=== PATIENT | male | born 1980 | race Caucasian/White ===

== ENCOUNTER 2016-05-25 07:24 | Emergency (ER) | payer MEDICAID ==
[~2016-05-25] VITALS: Ht 170.2 cm; Wt 62.0 kg
[2016-05-25 08:05] VITALS: BP 110/76
== END 2016-05-25 09:53 | disposition home or self-care (01) ==
LOC: ER 07:25
DX: Z48.02 Encounter for removal of sutures (principal)
CPT/HCPCS: 99281; Z7610

== ENCOUNTER 2017-08-20 20:39 | Emergency (ER) | payer SELFPAY ==
[~2017-08-20] VITALS: Ht 170.2 cm; Wt 62.0 kg
[2017-08-20 20:56] VITALS: BP 131/95
[2017-08-20] MEDS ORDERED: IBUPROFEN 600MG TABLET PO STA (21:09)
[2017-08-20 21:39] LABS: BASOPHILS % 0.6 % (0.0-2.0); EOSINOPHILS % 0.2 % (0.0-5.0); HEMATOCRIT. 46.6 % (42.0-52.0); LYMPHOCYTES % 35.1 % (20.0-50.0); MEAN CORPUSCULAR HEMOGLOBIN 31.7 pg (28.0-32.0); MEAN CORPUSCULAR VOLUME 92.5 fL (80.0-94.0); MEAN PLATELET VOLUME 7.7 fl (7.4-10.4); MONOCYTES % 8.4 % (2.0-8.0); NEUTROPHILS % 55.7 % (40.0-76.0); PLATELET 171 x1000/uL (130-400); RED BLOOD CELL COUNT 5.04 mill/uL (4.7-6.1); RED CELL DISTRIBUTION WIDTH 14.3 % (11.6-14.6)
[2017-08-20 21:45] LABS: CHLORIDE 108 mEq/L (98-107)
[2017-08-20 21:49] LABS: ETHANOL BLOOD 159 mg/dL
== END 2017-08-20 23:00 | disposition left against medical advice (07) ==
LOC: ER 22:44
DX: R07.89 Other chest pain (principal); T51.0X1A Toxic effect of ethanol, accidental (unintentional), initial encounter; R00.0 Tachycardia, unspecified; F32.9 Major depressive disorder, single episode, unspecified; F12.10 Cannabis abuse, uncomplicated; F17.200 Nicotine dependence, unspecified, uncomplicated; Y90.6 Blood alcohol level of 120-199 mg/100 ml; Z88.0 Allergy status to penicillin; Y92.018 Other place in single-family (private) house as the place of occurrence of the external cause
CPT/HCPCS: 36415; 71045; 80053; 83690; 84484; 85025; 93005; 99285; G0482

== ENCOUNTER 2018-05-31 17:39 | Emergency (ER) | payer SELFPAY ==
[~2018-05-31] VITALS: Ht 170.2 cm; Wt 63.0 kg
[2018-05-31 18:32] VITALS: BP 122/78
== END 2018-05-31 21:45 | disposition left against medical advice (07) ==
LOC: ER 17:39
DX: Z53.21 Procedure and treatment not carried out due to patient leaving prior to being seen by health care provider (principal)

== ENCOUNTER 2019-01-06 05:37 | Emergency (ER) | payer SELFPAY ==
[~2019-01-06] VITALS: Ht 170.2 cm; Wt 59.0 kg
[2019-01-06] MEDS ORDERED: KETOROLAC 30MG/ML VIAL IV STA (07:00)
[2019-01-06] MEDS ORDERED: SODIUM CHLORIDE 0.9% 1,000 ML IV ONE (07:00)
[2019-01-06 07:11] VITALS: BP 109/76
== END 2019-01-06 09:11 | disposition home or self-care (01) ==
LOC: ER 05:37
DX: R07.89 Other chest pain (principal); F12.10 Cannabis abuse, uncomplicated; Z88.0 Allergy status to penicillin; W01.0XXA Fall on same level from slipping, tripping and stumbling without subsequent striking against object, initial encounter; Y93.89 Activity, other specified; Y92.89 Other specified places as the place of occurrence of the external cause
CPT/HCPCS: 71045; 93005; 96374; 99283; J1885; J7030; Z7610

== ENCOUNTER 2019-01-18 04:26 | Emergency (ER) | payer SELFPAY ==
[~2019-01-18] VITALS: Ht 170.2 cm; Wt 64.0 kg
[2019-01-18 05:18] VITALS: BP 138/94
== END 2019-01-18 09:38 | disposition home or self-care (01) ==
LOC: ER 04:26
DX: R07.81 Pleurodynia (principal); M25.511 Pain in right shoulder; F10.129 Alcohol abuse with intoxication, unspecified; F17.200 Nicotine dependence, unspecified, uncomplicated; I51.9 Heart disease, unspecified; Y90.9 Presence of alcohol in blood, level not specified; V49.40XA Driver injured in collision with unspecified motor vehicles in traffic accident, initial encounter; Y93.89 Activity, other specified; Y92.410 Unspecified street and highway as the place of occurrence of the external cause; Z95.1 Presence of aortocoronary bypass graft
CPT/HCPCS: 71045; 73030; 99284

== ENCOUNTER 2020-08-06 08:30 | Emergency (ER) | payer SELFPAY ==
[~2020-08-06] VITALS: Ht 170.2 cm; Wt 62.0 kg
[2020-08-06] MEDS ORDERED: MORPHINE SULFATE 4 MG/ML CPJ (NOT FOR IM USE) IV STA (08:49)
[2020-08-06] MEDS ORDERED: ONDANSETRON HCL 4MG/2ML INJ IV STA (08:49)
[2020-08-06] MEDS ORDERED: SODIUM CHLORIDE 0.9% 1,000 ML IV ONE (09:00)
[2020-08-06] MEDS ORDERED: MAGNESIUM/ALUMINUM HYDROXIDE/SIMETHICONE 30ML UDC PO ONE (09:00)
[2020-08-06] MEDS ORDERED: ASPIRIN 325MG EC TABLET PO ONE (09:00)
[2020-08-06 09:12] LABS: BASOPHILS % 0.3 % (0.0-2.0); EOSINOPHILS % 0.1 % (0.0-5.0); HEMATOCRIT. 44.9 % (42.0-52.0); HEMOGLOBIN. 15.4 g/dL (14.0-18.0); LYMPHOCYTES % 12.3 % (20.0-50.0); MEAN CORPUSCULAR HEMOGLOBIN 32.4 pg (28.0-32.0); MEAN CORPUSCULAR VOLUME 94.5 fL (80.0-94.0); MEAN PLATELET VOLUME 7.9 fl (7.4-10.4); MONOCYTES % 4.3 % (2.0-8.0); PLATELET 159 x1000/uL (130-400); RED BLOOD CELL COUNT 4.75 mill/uL (4.7-6.1); RED CELL DISTRIBUTION WIDTH 13.9 % (11.6-14.6)
[2020-08-06 09:22] LABS: CHLORIDE 104 mEq/L (98-107)
[2020-08-06] MEDS ORDERED: ONDA4TAB5 MT (10:33)
[2020-08-06 11:29] VITALS: BP 125/76
== END 2020-08-06 12:00 | disposition home or self-care (01) ==
LOC: ER 08:30
DX: R11.2 Nausea with vomiting, unspecified (principal); R07.9 Chest pain, unspecified; I51.9 Heart disease, unspecified; Z95.1 Presence of aortocoronary bypass graft; Z98.890 Other specified postprocedural states
CPT/HCPCS: 36415; 71045; 80053; 83880; 84484; 85025; 93005; 96361; 96374; 96375; 99285; J2270; J2405; J7030

== ENCOUNTER 2021-08-25 00:59 | Emergency (ER) | payer MEDICAID ==
[~2021-08-25] VITALS: Ht 170.2 cm; Wt 63.0 kg
[~2021-08-25 00:59] MED LIST: ONDA4TAB5 MT
[2021-08-25 01:10] VITALS: BP 116/86
== END 2021-08-25 02:54 | disposition left against medical advice (07) ==
LOC: ER 00:59
DX: Z53.21 Procedure and treatment not carried out due to patient leaving prior to being seen by health care provider (principal)

== ENCOUNTER 2021-12-14 17:26 | Inpatient (IN) | payer MEDICAID ==
[~2021-12-14] VITALS: Ht 170.2 cm; Wt 61.2 kg
[2021-12-14] MEDS ORDERED: ONDANSETRON HCL 4MG/2ML INJ IV STA (18:36)
[2021-12-14] MEDS ORDERED: MORPHINE SULFATE 4 MG/ML CPJ (NOT FOR IM USE) IV STA (18:36)
[2021-12-14] MEDS ORDERED: SODIUM CHLORIDE 0.9% 1,000 ML IV ONE (18:45)
[2021-12-14] MEDS ORDERED: PANTOPRAZOLE SODIUM 40 MG/VIAL IV ONE (18:45)
[2021-12-14] MEDS ORDERED: CEFTRIAXONE SODIUM 1 G/VIAL IM ONE (18:45)
[2021-12-14 19:47] LABS: BASOPHILS % 0.2 % (0.0-2.0); CLARITY URINE CLEAR (CLEAR); COLOR URINE YELLOW (YELLOW); EOSINOPHILS % 0.1 % (0.0-5.0); HEMATOCRIT. 44.1 % (42.0-52.0); KETONES URINE 1+ (NEGATIVE); LEUKOCYTE ESTERASE URINE NEGATIVE (NEGATIVE); MEAN CORPUSCULAR HEMOGLOBIN 33.8 pg (28.0-32.0); MEAN CORPUSCULAR VOLUME 99.4 fL (80.0-94.0); MEAN PLATELET VOLUME 7.6 fl (7.4-10.4); MONOCYTES % 9.4 % (2.0-8.0); NEUTROPHILS % 78.3 % (40.0-76.0); NITRITE URINE NEGATIVE (NEGATIVE); OCCULT BLOOD URINE NEGATIVE (NEGATIVE); PH URINE 7.5 (4.5-8.0); PLATELET 158 x1000/uL (130-400); PROTEIN URINE TRACE (NEGATIVE); RED BLOOD CELL COUNT 4.44 mill/uL (4.7-6.1); RED CELL DISTRIBUTION WIDTH 13.7 % (11.6-14.6); SPECIFIC GRAVITY URINE 1.018 (1.005-1.030)
[2021-12-14 19:53] LABS: CHLORIDE 97 mEq/L (98-107)
[2021-12-14 20:02] LABS: ETHANOL BLOOD < 10 mg/dL
[2021-12-14] MEDS ORDERED: LORAZEPAM 2MG/ML CPJ IV ONE (20:45)
[2021-12-14 21:11] LABS: *AMPHETAMINES SCREEN URINE NEGATIVE (NEGATIVE); *BARBITURATES SCREEN URINE NEGATIVE (NEGATIVE); *BENZODIAZEPINES SCREEN URINE NEGATIVE (NEGATIVE); *COCAINE SCREEN URINE PRESUMTIVE POSITIVE (NEGATIVE); CANNABINOID URINE SCREEN PRESUMTIVE POSITIVE (NEGATIVE); METHADONE URINE SCREEN NEGATIVE (NEGATIVE); OPIATES URINE SCREEN NEGATIVE (NEGATIVE); PHENCYCLIDINE URINE SCREEN NEGATIVE (NEGATIVE)
[2021-12-14] MEDS ORDERED: HALOPERIDOL LACTATE 5MG/ML VIAL IM PRN (21:30)
[2021-12-14] MEDS ORDERED: ONDANSETRON HCL 4MG/2ML INJ IV PRN (21:30)
[2021-12-14] MEDS ORDERED: IPRATROPIUM/ALBUTEROL 0.5-3(2.5)MG/3ML NEB NEB PRN (21:30)
[2021-12-14] MEDS ORDERED: MAGNESIUM/ALUMINUM HYDROXIDE/SIMETHICONE 30ML UDC PO PRN (21:30)
[2021-12-14] MEDS ORDERED: NITROGLYCERIN 0.4MG TABLET SL SL PRN (21:30)
[2021-12-14] MEDS ORDERED: ACETAMINOPHEN 325MG TABLET PO PRN ×2 (21:30)
[2021-12-14] MEDS ORDERED: KETOROLAC 15MG/ML VIAL IV PRN (21:30)
[2021-12-14] MEDS ORDERED: CLONIDINE 0.1MG TABLET PO PRN (21:30)
[2021-12-14] MEDS ORDERED: DOCUSATE SODIUM 100MG CAPSULE PO PRN (21:30)
[2021-12-14] MEDS ORDERED: NA PHOS,M-B/NA PHOS,DI-BA ENEMA 118ML PR PRN (21:30)
[2021-12-14] MEDS ORDERED: GUAIFENESIN 200MG/10ML SUGAR FREE UDC PO PRN (21:30)
[2021-12-14] MEDS ORDERED: LORAZEPAM 2MG/ML CPJ IV PRN (21:45)
[2021-12-14 22:29] LABS: CREATINE KINASE 563 IU/L (39-308); CREATINE KINASE MB FRACTION 4.7 ng/mL (0.5-3.6)
[2021-12-14] MEDS ORDERED: MVI, ADULT NO.1 10 ML, FOLIC ACID 1 MG, THIAMINE HCL 100 MG in SODIUM CHLORIDE 0.9% 1,0... IV SCH ×4 (22:30)
[2021-12-14 22:33] LABS: T4 FREE 1.17 ng/dL (0.76-1.46)
[2021-12-14 22:48] LABS: VITAMIN B12 SERUM 371 pg/mL (211-911)
[2021-12-15] VITALS (7 sets, daily range): BP systolic 94–117; BP diastolic 54–72
[2021-12-15] MEDS: ENOXAPARIN 40MG/0.4ML SYR SUBCUT SCH (09:41)
[2021-12-15] MEDS: PANTOPRAZOLE SODIUM 40 MG/VIAL IV SCH (09:41)
[2021-12-15 10:21] LABS: BASOPHILS % 0.5 % (0.0-2.0); EOSINOPHILS % 1.8 % (0.0-5.0); HEMATOCRIT. 41.2 % (42.0-52.0); HEMOGLOBIN. 13.9 g/dL (14.0-18.0); LYMPHOCYTES % 21.4 % (20.0-50.0); MEAN CORPUSCULAR HEMOGLOBIN 33.5 pg (28.0-32.0); MEAN CORPUSCULAR VOLUME 99.3 fL (80.0-94.0); MEAN PLATELET VOLUME 7.6 fl (7.4-10.4); NEUTROPHILS % 66.3 % (40.0-76.0); PLATELET 123 x1000/uL (130-400); RED BLOOD CELL COUNT 4.15 mill/uL (4.7-6.1); RED CELL DISTRIBUTION WIDTH 13.6 % (11.6-14.6)
[2021-12-15 10:48] LABS: CHLORIDE 106 mEq/L (98-107)
[2021-12-15 10:54] LABS: CREATINE KINASE MB FRACTION 3.1 ng/mL (0.5-3.6)
[2021-12-15] MEDS: LEVETIRACETAM 500MG TABLET PO SCH ×2 (10:56→20:05)
[2021-12-15 11:00] LABS: PHOSPHORUS 1.6 mg/dL (2.5-4.9)
[2021-12-16 03:44] VITALS: BP 94/59
[2021-12-16 08:00] VITALS: BP 98/63
[2021-12-16] MEDS: PANTOPRAZOLE SODIUM 40 MG/VIAL IV SCH (08:31)
[2021-12-16] MEDS: LEVETIRACETAM 500MG TABLET PO SCH ×2 (08:31→20:37)
[2021-12-16] MEDS: ENOXAPARIN 40MG/0.4ML SYR SUBCUT SCH (08:32)
[2021-12-16 12:00] VITALS: BP 90/61
[2021-12-16] MEDS: FLUOXETINE HCL 10 MG CAPSULE PO SCH (12:38)
[2021-12-16] MEDS: ARIPIPRAZOLE 5MG TABLET PO SCH (12:39)
[2021-12-16 16:00] VITALS: BP 92/59
[2021-12-16 20:00] VITALS: BP 101/72
[2021-12-16] MEDS: TRAZODONE HCL 50MG TABLET PO SCH (20:37)
[2021-12-17] VITALS: BP 122/78
[2021-12-17 04:00] VITALS: BP 99/56
[2021-12-17 08:00] VITALS: BP 106/69
[2021-12-17] MEDS: LEVETIRACETAM 500MG TABLET PO SCH ×2 (08:25→20:26)
[2021-12-17] MEDS: FLUOXETINE HCL 10 MG CAPSULE PO SCH (08:25)
[2021-12-17] MEDS: PANTOPRAZOLE SODIUM 40 MG/VIAL IV SCH (08:25)
[2021-12-17] MEDS: ENOXAPARIN 40MG/0.4ML SYR SUBCUT SCH (08:25)
[2021-12-17] MEDS: ARIPIPRAZOLE 5MG TABLET PO SCH (08:25)
[2021-12-17 12:00] VITALS: BP 95/58
[2021-12-17 16:00] VITALS: BP 97/61
[2021-12-17 19:42] VITALS: BP 98/57
[2021-12-17] MEDS: TRAZODONE HCL 50MG TABLET PO SCH (20:26)
[2021-12-18] VITALS: BP 101/66
[2021-12-18 03:56] VITALS: BP 95/61
[2021-12-18 08:00] VITALS: BP 107/58
[2021-12-18] MEDS: PANTOPRAZOLE SODIUM 40 MG/VIAL IV SCH (08:42)
[2021-12-18] MEDS: LEVETIRACETAM 500MG TABLET PO SCH ×2 (08:42→20:26)
[2021-12-18] MEDS: FLUOXETINE HCL 10 MG CAPSULE PO SCH (08:42)
[2021-12-18] MEDS: ENOXAPARIN 40MG/0.4ML SYR SUBCUT SCH (08:42)
[2021-12-18] MEDS: ARIPIPRAZOLE 5MG TABLET PO SCH (08:42)
[2021-12-18 12:00] VITALS: BP 97/63
[2021-12-18 16:30] VITALS: BP 110/76
[2021-12-18 20:00] VITALS: BP 105/61
[2021-12-18] MEDS: TRAZODONE HCL 50MG TABLET PO SCH (20:26)
[2021-12-19] VITALS: BP 93/59
[2021-12-19 04:00] VITALS: BP 96/54
[2021-12-19 07:49] VITALS: BP 97/50
[2021-12-19] MEDS: PANTOPRAZOLE SODIUM 40 MG/VIAL IV SCH (08:08)
[2021-12-19] MEDS: ARIPIPRAZOLE 5MG TABLET PO SCH (08:09)
[2021-12-19] MEDS: ENOXAPARIN 40MG/0.4ML SYR SUBCUT SCH (08:09)
[2021-12-19] MEDS: LEVETIRACETAM 500MG TABLET PO SCH ×2 (08:09→20:57)
[2021-12-19] MEDS: FLUOXETINE HCL 20MG CAPSULE PO SCH (08:09)
[2021-12-19 12:00] VITALS: BP 105/72
[2021-12-19 15:51] VITALS: BP 91/51
[2021-12-19 20:00] VITALS: BP 134/71
[2021-12-19] MEDS: TRAZODONE HCL 50MG TABLET PO SCH (20:57)
[2021-12-20] VITALS: BP 106/72
[2021-12-20 04:00] VITALS: BP 118/68
[2021-12-20 08:00] VITALS: BP 98/63
[2021-12-20] MEDS: ARIPIPRAZOLE 5MG TABLET PO SCH (08:52)
[2021-12-20] MEDS: PANTOPRAZOLE SODIUM 40 MG/VIAL IV SCH (08:53)
[2021-12-20] MEDS: LEVETIRACETAM 500MG TABLET PO SCH ×2 (08:54→21:46)
[2021-12-20] MEDS: FLUOXETINE HCL 20MG CAPSULE PO SCH (08:54)
[2021-12-20] MEDS: ENOXAPARIN 40MG/0.4ML SYR SUBCUT SCH (08:55)
[2021-12-20 11:42] VITALS: BP 123/83
[2021-12-20 15:48] VITALS: BP 119/82
[2021-12-20 20:00] VITALS: BP 128/86
[2021-12-20] MEDS: TRAZODONE HCL 50MG TABLET PO SCH (21:46)
[2021-12-21] VITALS: BP 128/78
[2021-12-21 04:00] VITALS: BP 132/68
[2021-12-21 06:03] LABS: BASOPHILS % 0.3 % (0.0-2.0); EOSINOPHILS % 1.5 % (0.0-5.0); HEMATOCRIT. 44.2 % (42.0-52.0); HEMOGLOBIN. 15.2 g/dL (14.0-18.0); LYMPHOCYTES % 34.1 % (20.0-50.0); MEAN CORPUSCULAR HEMOGLOBIN 33.8 pg (28.0-32.0); MEAN CORPUSCULAR VOLUME 98.6 fL (80.0-94.0); MEAN PLATELET VOLUME 8.2 fl (7.4-10.4); MONOCYTES % 11.3 % (2.0-8.0); NEUTROPHILS % 52.8 % (40.0-76.0); PLATELET 144 x1000/uL (130-400); RED BLOOD CELL COUNT 4.49 mill/uL (4.7-6.1); RED CELL DISTRIBUTION WIDTH 13.1 % (11.6-14.6)
[2021-12-21 06:21] LABS: CHLORIDE 101 mEq/L (98-107)
[2021-12-21 08:00] VITALS: BP 120/85
[2021-12-21] MEDS ORDERED: ENOXAPARIN 40MG/0.4ML SYR SUBCUT SCH (09:00)
[2021-12-21 09:18] VITALS: BP 153/60
[2021-12-21] MEDS ORDERED: KEPP500 PO (09:26)
[2021-12-21 12:00] VITALS: BP 122/83
== END 2021-12-21 09:40 | disposition home or self-care (01) | DRG 817 ==
LOC: ER 17:26 → EDBEDREQTM 21:48 → EDBEDREQ 21:48 → EDBEDREQSVC 21:48 → ENRESERV 23:46 → 8WST 12-15 01:31
PROVIDERS: ADMIT Internal Medicine; ATTEND Internal Medicine
DX: T40.5X2A Poisoning by cocaine, intentional self-harm, initial encounter (principal); E87.20 Acidosis, unspecified; R45.851 Suicidal ideations; T51.8X2A Toxic effect of other alcohols, intentional self-harm, initial encounter; T65.892A Toxic effect of other specified substances, intentional self-harm, initial encounter; E86.0 Dehydration; F33.2 Major depressive disorder, recurrent severe without psychotic features; K70.9 Alcoholic liver disease, unspecified; F10.239 Alcohol dependence with withdrawal, unspecified; F14.10 Cocaine abuse, uncomplicated; E80.6 Other disorders of bilirubin metabolism; F12.90 Cannabis use, unspecified, uncomplicated; Z59.00 Homelessness unspecified; Z88.0 Allergy status to penicillin; Y92.89 Other specified places as the place of occurrence of the external cause
CPT/HCPCS: 36415; 80053; 80061; 80305; 80307; 80320; 80329; 81003; 82140; 82550; 82553; 82607; 82746; 83036; 83540; 83550; 83605; 83735; 84100; 84439; 84443; 84484; 85025; 93306; 93970; 99291; C9113; J0696; J1650; J2060; J2270; J2405; J3411; J3490; J7030; G0480

== ENCOUNTER 2022-01-03 05:59 | Emergency (ER) | payer MEDICAID ==
[~2022-01-03] VITALS: Ht 170.2 cm; Wt 61.3 kg
[~2022-01-03 05:59] MED LIST changes: +KEPP500 PO
[2022-01-03] MEDS ORDERED: MAGNESIUM/ALUMINUM HYDROXIDE/SIMETHICONE 30ML UDC PO NR (06:30)
[2022-01-03] MEDS ORDERED: VISCOUS LIDOCAINE 2% 15 ML UDC PO NR (06:30)
[2022-01-03] MEDS ORDERED: SODIUM CHLORIDE 0.9% 1,000 ML IV ONE (06:30)
[2022-01-03] MEDS ORDERED: ACETAMINOPHEN 325MG TABLET PO NR (06:30)
[2022-01-03 06:52] LABS: BASOPHILS % 0.4 % (0.0-2.0); EOSINOPHILS % 1.3 % (0.0-5.0); HEMATOCRIT. 41.1 % (42.0-52.0); HEMOGLOBIN. 14.1 g/dL (14.0-18.0); LYMPHOCYTES % 30.3 % (20.0-50.0); MEAN CORPUSCULAR HEMOGLOBIN 33.2 pg (28.0-32.0); MEAN CORPUSCULAR VOLUME 96.6 fL (80.0-94.0); MEAN PLATELET VOLUME 7.3 fl (7.4-10.4); MONOCYTES % 8.2 % (2.0-8.0); NEUTROPHILS % 59.8 % (40.0-76.0); PLATELET 145 x1000/uL (130-400); RED BLOOD CELL COUNT 4.25 mill/uL (4.7-6.1); RED CELL DISTRIBUTION WIDTH 13.4 % (11.6-14.6)
[2022-01-03 06:55] LABS: CHLORIDE 102 mEq/L (98-107)
[2022-01-03 07:08] LABS: ETHANOL BLOOD 45 mg/dL
[2022-01-03 07:24] LABS: *AMPHETAMINES SCREEN URINE PRESUMTIVE POSITIVE (NEGATIVE); *BARBITURATES SCREEN URINE NEGATIVE (NEGATIVE); *BENZODIAZEPINES SCREEN URINE NEGATIVE (NEGATIVE); *COCAINE SCREEN URINE NEGATIVE (NEGATIVE); CANNABINOID URINE SCREEN PRESUMTIVE POSITIVE (NEGATIVE); METHADONE URINE SCREEN NEGATIVE (NEGATIVE); OPIATES URINE SCREEN NEGATIVE (NEGATIVE); PHENCYCLIDINE URINE SCREEN NEGATIVE (NEGATIVE)
[2022-01-03] MEDS ORDERED: LEVETIRACETAM 500MG/5ML CUP PO ONE (09:00)
[2022-01-03] MEDS ORDERED: ASPI-1497 MT (09:59)
[2022-01-03] MEDS ORDERED: KEPP500 MT (09:59)
[2022-01-03] MEDS ORDERED: ASPIRIN 325MG EC TABLET PO ONE (10:00)
[2022-01-03 10:10] VITALS: BP 118/88
== END 2022-01-03 10:45 | disposition home or self-care (01) ==
LOC: ER 05:59
DX: F15.10 Other stimulant abuse, uncomplicated (principal); F10.20 Alcohol dependence, uncomplicated; R56.9 Unspecified convulsions; F14.10 Cocaine abuse, uncomplicated; F17.290 Nicotine dependence, other tobacco product, uncomplicated; F12.10 Cannabis abuse, uncomplicated; Z88.0 Allergy status to penicillin; Z79.899 Other long term (current) drug therapy
CPT/HCPCS: 36415; 71045; 80053; 80305; 80320; 83880; 84484; 85025; 93005; 96360; 96361; 99285; G0480

== ENCOUNTER 2022-01-07 21:20 | Emergency (ER) | payer MEDICAID ==
[~2022-01-07] VITALS: Ht 170.2 cm; Wt 59.0 kg
[~2022-01-07 21:20] MED LIST changes: +ASPI-1497 MT; +KEPP500 MT
[2022-01-08] MEDS ORDERED: SODIUM CHLORIDE 0.9% 1,000 ML IV ONE (03:45)
[2022-01-08] MEDS ORDERED: TETANUS, DIPHTHERIA, PERTUSSIS VAC/PF 0.5ML (>10YR OLD) IM ONE ×2 (03:45→06:15)
[2022-01-08 04:31] LABS: BASOPHILS % 0.4 % (0.0-2.0); EOSINOPHILS % 0.9 % (0.0-5.0); HEMATOCRIT. 39.5 % (42.0-52.0); HEMOGLOBIN. 13.5 g/dL (14.0-18.0); LYMPHOCYTES % 26.1 % (20.0-50.0); MEAN CORPUSCULAR HEMOGLOBIN 33.8 pg (28.0-32.0); MEAN CORPUSCULAR VOLUME 99.1 fL (80.0-94.0); MEAN PLATELET VOLUME 7.2 fl (7.4-10.4); MONOCYTES % 11.3 % (2.0-8.0); NEUTROPHILS % 61.3 % (40.0-76.0); PLATELET 147 x1000/uL (130-400); RED BLOOD CELL COUNT 3.99 mill/uL (4.7-6.1); RED CELL DISTRIBUTION WIDTH 13.7 % (11.6-14.6)
[2022-01-08 04:34] LABS: CHLORIDE 106 mEq/L (98-107)
[2022-01-08 04:37] LABS: PARTIAL THROMBOPLASTIN TIME 24.2 sec (23.4-31.0); PROTHROMBIN TIME 10.4 sec (9.6-11.0)
[2022-01-08 04:54] VITALS: BP 103/66
[2022-01-08] MEDS ORDERED: IOHEXOL-300 100 ML BOTTLE ONE (06:11)
== END 2022-01-08 07:21 | disposition home or self-care (01) ==
LOC: ER 21:20
DX: S02.2XXA Fracture of nasal bones, initial encounter for closed fracture (principal); S09.8XXA Other specified injuries of head, initial encounter; I51.4 Myocarditis, unspecified; Y08.89XA Assault by other specified means, initial encounter; Y93.9 Activity, unspecified; Y92.9 Unspecified place or not applicable; Z88.0 Allergy status to penicillin; Z79.82 Long term (current) use of aspirin
CPT/HCPCS: 36415; 70450; 70486; 71260; 72125; 73080; 73560; 74177; 80053; 84484; 85025; 85610; 85730; 86850; 86900; 86901; 90471; 90715; 96360; 99285; J7030; Q9967

== ENCOUNTER 2022-01-08 13:51 | Emergency (ER) | payer MEDICAID ==
[~2022-01-08] VITALS: Ht 167.6 cm; Wt 75.0 kg
[2022-01-08 13:56] VITALS: BP 114/76
== END 2022-01-08 18:58 | disposition left against medical advice (07) ==
LOC: ER 13:51
DX: Z53.21 Procedure and treatment not carried out due to patient leaving prior to being seen by health care provider (principal)
CPT/HCPCS: 93005

== ENCOUNTER 2022-01-10 11:26 | Emergency (ER) | payer MEDICAID ==
[~2022-01-10] VITALS: Ht 170.2 cm; Wt 62.0 kg
[2022-01-10 17:03] LABS: BASOPHILS % 0.6 % (0.0-2.0); EOSINOPHILS % 0.8 % (0.0-5.0); HEMATOCRIT. 39.4 % (42.0-52.0); HEMOGLOBIN. 13.3 g/dL (14.0-18.0); LYMPHOCYTES % 32.2 % (20.0-50.0); MEAN CORPUSCULAR HEMOGLOBIN 33.1 pg (28.0-32.0); MEAN CORPUSCULAR VOLUME 98.2 fL (80.0-94.0); MEAN PLATELET VOLUME 7.2 fl (7.4-10.4); MONOCYTES % 12.3 % (2.0-8.0); NEUTROPHILS % 54.1 % (40.0-76.0); PLATELET 149 x1000/uL (130-400); RED BLOOD CELL COUNT 4.01 mill/uL (4.7-6.1); RED CELL DISTRIBUTION WIDTH 13.4 % (11.6-14.6)
[2022-01-10 17:26] LABS: CHLORIDE 103 mEq/L (98-107)
[2022-01-10 17:34] LABS: ETHANOL BLOOD 162 mg/dL
[2022-01-10 20:38] LABS: *AMPHETAMINES SCREEN URINE NEGATIVE (NEGATIVE); *BARBITURATES SCREEN URINE NEGATIVE (NEGATIVE); *BENZODIAZEPINES SCREEN URINE NEGATIVE (NEGATIVE); *COCAINE SCREEN URINE NEGATIVE (NEGATIVE); CANNABINOID URINE SCREEN PRESUMTIVE POSITIVE (NEGATIVE); METHADONE URINE SCREEN NEGATIVE (NEGATIVE); OPIATES URINE SCREEN NEGATIVE (NEGATIVE); PHENCYCLIDINE URINE SCREEN NEGATIVE (NEGATIVE)
[2022-01-10] MEDS ORDERED: ACETAMINOPHEN 325MG TABLET PO ONE (21:30)
[2022-01-10] MEDS ORDERED: LEVETIRACETAM 500MG TABLET PO ONE (21:45)
[2022-01-10 23:30] VITALS: BP 128/68
[2022-01-11] MEDS ORDERED: LEVETIRACETAM 500MG TABLET PO SCH (09:00)
[2022-01-11] MEDS ORDERED: QUETIAPINE FUMARATE 50MG TABLET PO SCH (21:00)
== END 2022-01-10 23:32 | disposition home or self-care (01) ==
LOC: ER 11:51
DX: R45.851 Suicidal ideations (principal); F32.9 Major depressive disorder, single episode, unspecified; Z79.899 Other long term (current) drug therapy; Z88.0 Allergy status to penicillin
CPT/HCPCS: 36415; 80048; 80305; 80307; 80320; 80329; 85025; 93005; 99285; G0480

== ENCOUNTER 2022-01-26 14:44 | Emergency (ER) | payer MEDICAID ==
[~2022-01-26] VITALS: Ht 167.6 cm; Wt 64.0 kg
[2022-01-26 14:58] VITALS: BP 112/72
== END 2022-01-26 15:33 | disposition left against medical advice (07) ==
LOC: ER 14:44
DX: Z53.21 Procedure and treatment not carried out due to patient leaving prior to being seen by health care provider (principal)

== ENCOUNTER 2022-03-02 23:27 | Emergency (ER) | payer MEDICAID ==
[~2022-03-02] VITALS: Ht 170.2 cm; Wt 61.0 kg
[2022-03-03] MEDS ORDERED: SODIUM CHLORIDE 0.9% 1,000 ML IV ONE
[2022-03-03] MEDS ORDERED: LORAZEPAM 2MG/ML CPJ IV ONE
[2022-03-03 00:31] LABS: BASOPHILS % 0.4 % (0.0-2.0); EOSINOPHILS % 0.4 % (0.0-5.0); HEMATOCRIT. 39.8 % (42.0-52.0); HEMOGLOBIN. 13.5 g/dL (14.0-18.0); LYMPHOCYTES % 12.7 % (20.0-50.0); MEAN CORPUSCULAR HEMOGLOBIN 33.2 pg (28.0-32.0); MEAN CORPUSCULAR VOLUME 98.4 fL (80.0-94.0); MEAN PLATELET VOLUME 7.7 fl (7.4-10.4); MONOCYTES % 9.3 % (2.0-8.0); NEUTROPHILS % 77.2 % (40.0-76.0); PLATELET 157 x1000/uL (130-400); RED BLOOD CELL COUNT 4.05 mill/uL (4.7-6.1); RED CELL DISTRIBUTION WIDTH 14.2 % (11.6-14.6)
[2022-03-03 00:37] LABS: CHLORIDE 106 mEq/L (98-107)
[2022-03-03 00:45] LABS: ETHANOL BLOOD < 10 mg/dL
[2022-03-03] MEDS ORDERED: KEPP500 PO (06:27)
[2022-03-03 06:40] LABS: *AMPHETAMINES SCREEN URINE NEGATIVE (NEGATIVE); *BARBITURATES SCREEN URINE NEGATIVE (NEGATIVE); *BENZODIAZEPINES SCREEN URINE NEGATIVE (NEGATIVE); *COCAINE SCREEN URINE NEGATIVE (NEGATIVE); CANNABINOID URINE SCREEN PRESUMTIVE POSITIVE (NEGATIVE); METHADONE URINE SCREEN NEGATIVE (NEGATIVE); OPIATES URINE SCREEN NEGATIVE (NEGATIVE); PHENCYCLIDINE URINE SCREEN NEGATIVE (NEGATIVE)
[2022-03-03 06:45] VITALS: BP 102/78
== END 2022-03-03 07:05 | disposition home or self-care (01) ==
LOC: ER 23:27
DX: F18.10 Inhalant abuse, uncomplicated (principal); S00.81XA Abrasion of other part of head, initial encounter; S50.311A Abrasion of right elbow, initial encounter; S80.212A Abrasion, left knee, initial encounter; S80.211A Abrasion, right knee, initial encounter; F32.A Depression, unspecified; R45.851 Suicidal ideations; G40.909 Epilepsy, unspecified, not intractable, without status epilepticus; Z76.0 Encounter for issue of repeat prescription; R00.0 Tachycardia, unspecified; Z20.822 Contact with and (suspected) exposure to COVID-19; Z88.0 Allergy status to penicillin; W01.0XXA Fall on same level from slipping, tripping and stumbling without subsequent striking against object, initial encounter; Y93.89 Activity, other specified; Y92.018 Other place in single-family (private) house as the place of occurrence of the external cause
CPT/HCPCS: 36415; 70450; 71045; 73080; 73560; 80053; 80305; 80307; 80320; 80329; 83605; 84484; 85025; 87426; 93005; 96361; 96374; 99285; C9803; J2060; J7030; Z7610; G0480

== ENCOUNTER 2022-06-24 19:24 | Emergency (ER) | payer MEDICAID ==
[~2022-06-24] VITALS: Ht 170.2 cm; Wt 70.0 kg
[2022-06-24 19:41] VITALS: BP 141/98
[2022-06-24] MEDS ORDERED: TETANUS, DIPHTHERIA, PERTUSSIS VAC/PF 0.5ML (>10YR OLD) IM ONE (20:15)
[2022-06-25] MEDS ORDERED: TETANUS, DIPHTHERIA, PERTUSSIS VAC/PF 0.5ML (>10YR OLD) IM ONE (02:30)
== END 2022-06-25 07:01 | disposition home or self-care (01) ==
LOC: ER 19:24
DX: S01.01XA Laceration without foreign body of scalp, initial encounter (principal); W18.39XA Other fall on same level, initial encounter; Y93.89 Activity, other specified; Y92.89 Other specified places as the place of occurrence of the external cause; Y99.8 Other external cause status
CPT/HCPCS: 12001; 90471; 90715; 99285

== ENCOUNTER 2022-07-11 11:14 | Emergency (ER) | payer MEDICAID ==
[~2022-07-11] VITALS: Ht 170.2 cm; Wt 61.0 kg
[2022-07-11 13:22] VITALS: BP 122/77
== END 2022-07-11 16:20 | disposition left against medical advice (07) ==
LOC: ER 13:46
DX: Z02.79 Encounter for issue of other medical certificate (principal); Z53.21 Procedure and treatment not carried out due to patient leaving prior to being seen by health care provider
CPT/HCPCS: 99281

== ENCOUNTER 2022-07-12 11:38 | Emergency (ER) | payer MEDICAID ==
[~2022-07-12] VITALS: Ht 170.2 cm; Wt 63.0 kg
[2022-07-12 12:12] VITALS: BP 133/90
== END 2022-07-12 14:41 | disposition home or self-care (01) ==
LOC: ER 13:40
DX: Z02.79 Encounter for issue of other medical certificate (principal); Z88.0 Allergy status to penicillin; Z48.00 Encounter for change or removal of nonsurgical wound dressing
CPT/HCPCS: 99281

== ENCOUNTER 2022-11-10 01:54 | Emergency (ER) | payer MEDICAID ==
[~2022-11-10] VITALS: Ht 165.1 cm; Wt 61.7 kg
[2022-11-10 02:02] VITALS: PULSE 99
[2022-11-10 02:08] VITALS: BP 130/86; RESP 18; TEMP 98.1; O2SAT 98
[2022-11-10 03:26] LABS: BASOPHILS % 0.4 % (0.0-2.0); HEMATOCRIT. 42.6 % (42.0-52.0); HEMOGLOBIN. 14.5 g/dL (14.0-18.0); LYMPHOCYTES % 18.5 % (20.0-50.0); MEAN CORPUSCULAR HEMOGLOBIN 33.6 pg (28.0-32.0); MEAN CORPUSCULAR HGB CONC 34.1 g/dL (31.0-37.0); MEAN CORPUSCULAR VOLUME 98.7 fL (80.0-94.0); MEAN PLATELET VOLUME 7.5 fl (7.4-10.4); MONOCYTES % 9.6 % (2.0-8.0); NEUTROPHILS % 70.5 % (40.0-76.0); PLATELET 148 x1000/uL (130-400); RED BLOOD CELL COUNT 4.31 mill/uL (4.7-6.1); RED CELL DISTRIBUTION WIDTH 14.4 % (11.6-14.6); WHITE BLOOD COUNT 6.6 x1000/uL (4.5-11.0)
[2022-11-10 03:34] LABS: CHLORIDE 109 mEq/L (98-107); INDEX HEMOLYSI 1 (1-3); INDEX ICTERIC 1 (1-4); INDEX LIPEMIC 1 (1-3); POTASSIUM 3.8 mEq/L (3.5-5.1); SODIUM 142 mEq/L (136-145)
[2022-11-10 03:43] LABS: ACETAMINOPHEN <2 ug/mL ug/mL (10-30); ALANINE AMINOTRANSFERASE 52 IU/L (13-61); ALBUMIN 3.6 g/dL (3.4-5.0); ASPARTATE AMINOTRANSFERASE 36 IU/L (15-37); BILIRUBIN TOTAL 0.5 mg/dL (0.1-1.0); CALCIUM 8.3 mg/dL (8.5-10.1); CARBON DIOXIDE 27 mEq/L (21-32); CREATININE 0.8 mg/dL (0.6-1.3); ETHANOL BLOOD 12 mg/dL (-10); GLUCOSE 96 mg/dL (70-105); PROTEIN TOTAL 7.3 g/dL (6.0-8.3); UREA NITROGEN BLOOD 7 mg/dL (7-21)
[2022-11-10] MEDS ORDERED: LIDOCAINE HCL/PF 1% 10 MG/ML 5ML VIAL INFIL ONE (04:45)
[2022-11-10] MEDS ORDERED: SERTRALINE HCL 25MG TABLET PO SCH (10:30)
[2022-11-10 12:03] LABS: *AMPHETAMINES SCREEN URINE NEGATIVE (NEGATIVE); *BARBITURATES SCREEN URINE NEGATIVE (NEGATIVE); *BENZODIAZEPINES SCREEN URINE NEGATIVE (NEGATIVE); *COCAINE SCREEN URINE NEGATIVE (NEGATIVE); CANNABINOID URINE SCREEN PRESUMTIVE POSITIVE (NEGATIVE); ECSTASY MDMA SCREEN URINE NEGATIVE (NEGATIVE); METHADONE URINE SCREEN NEGATIVE (NEGATIVE); OPIATES URINE SCREEN NEGATIVE (NEGATIVE); PHENCYCLIDINE URINE SCREEN NEGATIVE (NEGATIVE)
== END 2022-11-10 11:59 | disposition left against medical advice (07) ==
LOC: ER 01:54
DX: S01.112A Laceration without foreign body of left eyelid and periocular area, initial encounter (principal); S01.01XA Laceration without foreign body of scalp, initial encounter; R51.9 Headache, unspecified; Z88.0 Allergy status to penicillin; Z20.822 Contact with and (suspected) exposure to COVID-19; X58.XXXA Exposure to other specified factors, initial encounter; Y93.89 Activity, other specified; Y92.89 Other specified places as the place of occurrence of the external cause; Y99.8 Other external cause status
CPT/HCPCS: 80053; 80305; 80307; 80329; 80320; 85025; 36415; 70450; 93005; 12002; 12011; 99285; 87426; J3490; C9803; Z7610; G0480

== ENCOUNTER 2022-11-10 15:50 | Emergency (ER) | payer MEDICAID ==
[~2022-11-10] VITALS: Ht 175.3 cm; Wt 78.0 kg
[2022-11-10 16:18] VITALS: BP 110/70; PULSE 102; RESP 18; O2SAT 96
== END 2022-11-10 19:24 | disposition home or self-care (01) ==
LOC: ER 15:50
DX: R45.851 Suicidal ideations (principal); Z88.0 Allergy status to penicillin
CPT/HCPCS: 99283

== ENCOUNTER 2022-11-10 23:33 | Emergency (ER) | payer MEDICAID | END 2022-11-11 01:14 | disposition left against medical advice (07) | LOC: ER 23:33 | DX: R51.9 Headache, unspecified (principal); Z53.21 Procedure and treatment not carried out due to patient leaving prior to being seen by health care provider ==

== ENCOUNTER 2022-12-04 00:24 | Emergency (ER) | payer MEDICAID ==
[~2022-12-04] VITALS: Ht 170.2 cm; Wt 66.0 kg
[2022-12-04 00:28] VITALS: PULSE 93
[2022-12-04 00:30] VITALS: BP 114/81; RESP 18; TEMP 98; O2SAT 100
== END 2022-12-04 02:23 | disposition home or self-care (01) ==
LOC: ER 00:24
DX: Z48.02 Encounter for removal of sutures (principal); Z88.0 Allergy status to penicillin
CPT/HCPCS: 99281; Z7610